=== PATIENT | male | born 1985 | race African-American/Black ===

== ENCOUNTER 2024-04-20 17:23 | Emergency (ER) | payer MEDICAID ==
[~2024-04-20] VITALS: Ht 182.9 cm; Wt 76.0 kg
[2024-04-20 17:27] VITALS: TEMP 98.6; O2SAT 98
[2024-04-20] MEDS ORDERED: MUPI15CR11 TP (18:31)
[2024-04-20 18:43] VITALS: BP 132/78; PULSE 78; RESP 15
== END 2024-04-20 18:48 | disposition home or self-care (01) ==
LOC: ER 17:23
DX: L73.9 Follicular disorder, unspecified (principal)
CPT/HCPCS: 99283